=== PATIENT | male | born 1965 | race Caucasian/White ===

== ENCOUNTER 2016-10-10 07:38 | Day surgery (SDC) | payer OTHER ==
[~2016-10-10] VITALS: Ht 175.3 cm; Wt 99.8 kg
[~2016-10-10 07:38] MED LIST: ALLEGRA ALLERG180 MG PO; CEFUROXIME500 MG PO; CIPRO500 MG PO; FLOVENT DISKUS1 DIS2 IH; FLUTICASONE PRO16 GM BOTH NARES; IBUPROFEN600 MG PO; LEVAQUIN750 MG PO; LIPITOR10 MG PO; NORCO 5/3251 TABLET PO; OMEPRAZOLE20 M2 PO; PERCOCET 5/31 TABLET PO; PREDNISONE10 MG PO
[2016-10-10 08:36] VITALS: BP 120/78
[2016-10-10 12:55] VITALS: BP 117/78
[2016-10-10 13:40] VITALS: BP 125/92
[2016-10-10 14:38] VITALS: BP 127/87
[2016-10-10 14:48] VITALS: BP 145/88
== END 2016-10-10 14:52 | disposition home or self-care (01) ==
LOC: SDC 07:38
DX: J34.2 Deviated nasal septum (principal); J34.3 Hypertrophy of nasal turbinates; K21.9 Gastro-esophageal reflux disease without esophagitis; E78.5 Hyperlipidemia, unspecified; Z88.0 Allergy status to penicillin; Z83.49 Family history of other endocrine, nutritional and metabolic diseases; Z82.0 Family history of epilepsy and other diseases of the nervous system; Z82.49 Family history of ischemic heart disease and other diseases of the circulatory system
CPT/HCPCS: J0171; J1170; J2250; J3010

== ENCOUNTER 2017-03-12 16:59 | Observation (INO) | payer OTHER ==
[~2017-03-12] VITALS: Ht 175.3 cm; Wt 104.8 kg
[~2017-03-12 16:59] MED LIST changes: -OMEPRAZOLE20 M2 PO; +OMEPRAZOLE40 M1 PO
[2017-03-12 18:35] LABS: EOSINOPHIL (%) 0.6 % (0-5); EOSINOPHIL COUNT 0.1 K/uL (0-0.3); HEMATOCRIT 45.2 % (38.0-50.0); IMMATURE GRANULOCYTE (%) 0.4 % (0.0-0.7); IMMATURE GRANULOCYTE COUNT 0.1 K/uL; INSTRUMENT ABS NEUTROPHIL CT 10.6 K/uL; LYMPHOCYTE COUNT 1.6 K/uL (1.0-2.8); MCH 29.1 PG (29.0-34.0); MCHC 33.6 G/DL (30.0-36.0); MCV 86.4 FL (86-99); MEAN PLAT.VOLUME 10.5 uM^3 (9.0-12.4); MONOCYTE COUNT 1.2 K/uL (0-0.8); NEUTROPHIL (%) 78.1 % (45-76); NEUTROPHIL COUNT 10.6 K/uL (1.8-6.4); PLATELET COUNT 186 K/uL (156-360); RBC DIS.WIDTH-CV 13.2 % (11.8-14.6); RBC DIS.WIDTH-SD 41.7 % (39-53); RED BLOOD COUNT 5.23 M/uL (4.00-5.50); WHITE BLOOD COUNT 13.6 K/uL (4.1-10.2)
[2017-03-12 18:45] LABS: CHLORIDE 105 mEq/L (99-109); POTASSIUM 3.9 mEq/L (3.7-5.4); SODIUM 138 mEq/L (136-147)
[2017-03-12 18:46] LABS: GLUCOSE 86 mg/dL (70-99)
[2017-03-12 18:48] LABS: ANION GAP 11 MEQ/L (2-14)
[2017-03-12 18:50] LABS: GFR ESTIMATE (CALCULATED) > 59 mL/min/
[2017-03-12 18:51] LABS: UREA NITROGEN (BUN) 18 mg/dL (9-23)
[2017-03-12] MEDS ORDERED: FLEXERIL10 MG PO (21:17)
[2017-03-12] MEDS ORDERED: HYDROCODON-ACE1 EAC7 PO (21:17)
[2017-03-12] MEDS ORDERED: MELOXICAM7.5 MG PO (21:17)
[2017-03-12 21:47] LABS: ADD MIUA? NO; BILIRUBIN NEGATIVE; BLOOD NEGATIVE; COLOR STRAW ((YELLOW)); GLUCOSE (STRIP) NEGATIVE; KETONES 20; LEUKOCYTES NEGATIVE; NITRITE NEGATIVE; PROTEIN (STRIP) NEGATIVE; UROBILINOGEN 0.2 MG/DL (0.2-1.0)
[2017-03-12 21:57] LABS: SPECIFIC GRAVITY 1.055 (1.000-1.030)
[2017-03-13 00:20] VITALS: BP 114/73
[2017-03-13 06:08] LABS: HEMATOCRIT 40.6 % (38.0-50.0); MCH 30.5 PG (29.0-34.0); MCHC 34.7 G/DL (30.0-36.0); MCV 87.7 FL (86-99); MEAN PLAT.VOLUME 10.3 uM^3 (9.0-12.4); PLATELET COUNT 153 K/uL (156-360); RBC DIS.WIDTH-CV 13.4 % (11.8-14.6); RBC DIS.WIDTH-SD 43.3 % (39-53); RED BLOOD COUNT 4.63 M/uL (4.00-5.50); WHITE BLOOD COUNT 13.8 K/uL (4.1-10.2)
[2017-03-13 06:37] LABS: ALKALINE PHOSPHATASE 46 IU/L (3-129); ANION GAP 7 MEQ/L (2-14); CHLORIDE 104 MEQ/L (99-109); GFR ESTIMATE (CALCULATED) > 59 mL/min/; GLUCOSE 106 mg/dL (70-99); POTASSIUM 3.9 MEQ/L (3.7-5.4); SAMPLE HEMOLYSIS CHECK 0; SAMPLE ICTERIC CHECK 0; SAMPLE LIPEMIA CHECK 0; SODIUM 137 MEQ/L (136-147); TOTAL BILIRUBIN 1.9 MG/DL (0.0-1.0); UREA NITROGEN (BUN) 12 mg/dL (9-23)
[2017-03-13 08:05] VITALS: BP 117/67
[2017-03-13 12:03] VITALS: BP 120/74
[2017-03-13 16:49] VITALS: BP 120/67
[2017-03-14 00:45] VITALS: BP 131/77
[2017-03-14 03:30] VITALS: BP 134/80
[2017-03-14 05:43] LABS: EOSINOPHIL (%) 1.3 % (0-5); EOSINOPHIL COUNT 0.1 K/uL (0-0.3); HEMATOCRIT 41.4 % (38.0-50.0); IMMATURE GRANULOCYTE (%) 0.4 % (0.0-0.7); INSTRUMENT ABS NEUTROPHIL CT 7.5 K/uL; LYMPHOCYTE COUNT 1.3 K/uL (1.0-2.8); MCHC 32.9 G/DL (30.0-36.0); MCV 88.3 FL (86-99); MEAN PLAT.VOLUME 10.2 uM^3 (9.0-12.4); NEUTROPHIL (%) 75.3 % (45-76); NEUTROPHIL COUNT 7.5 K/uL (1.8-6.4); PLATELET COUNT 158 K/uL (156-360); RBC DIS.WIDTH-CV 13.2 % (11.8-14.6); RED BLOOD COUNT 4.69 M/uL (4.00-5.50); WHITE BLOOD COUNT 9.9 K/uL (4.1-10.2)
[2017-03-14 06:20] LABS: ALKALINE PHOSPHATASE 47 IU/L (3-129); ANION GAP 6 MEQ/L (2-14); CHLORIDE 105 MEQ/L (99-109); GFR ESTIMATE (CALCULATED) > 59 mL/min/; GLUCOSE 87 mg/dL (70-99); POTASSIUM 3.9 MEQ/L (3.7-5.4); SAMPLE HEMOLYSIS CHECK 0; SAMPLE ICTERIC CHECK 0; SAMPLE LIPEMIA CHECK 0; SODIUM 139 MEQ/L (136-147); UREA NITROGEN (BUN) 10 mg/dL (9-23)
[2017-03-14 06:21] LABS: TOTAL BILIRUBIN 1.4 MG/DL (0.0-1.0)
[2017-03-14 07:30] VITALS: BP 122/84
[2017-03-14 13:20] VITALS: BP 118/78
[2017-03-14] MEDS ORDERED: HYDROCODON-ACE1 EAC7 PO (13:52)
[2017-03-14] MEDS ORDERED: FLAGYL500 MG PO (13:53)
[2017-03-14] MEDS ORDERED: CIPRO500 MG PO (13:53)
== END 2017-03-14 15:32 | disposition home or self-care (01) ==
LOC: EME 16:59 → RME 16:59 → EDOF 22:19 → 5WEST 22:19 → EDOF 22:19 → ENRESERV 22:24 → EDOF 03-13 00:12 → 5WEST 03-13 00:16
PROVIDERS: Internal Medicine; Physician Assistant
DX: K57.32 Diverticulitis of large intestine without perforation or abscess without bleeding (principal); E78.5 Hyperlipidemia, unspecified; K21.9 Gastro-esophageal reflux disease without esophagitis; Z82.49 Family history of ischemic heart disease and other diseases of the circulatory system; Z82.0 Family history of epilepsy and other diseases of the nervous system; Z88.0 Allergy status to penicillin; D72.829 Elevated white blood cell count, unspecified
CPT/HCPCS: 74177; 80048; 80053; 81003; 85025; 85027; 99281; 99285; C9113; G0378; J1644; J1885; J1956; J2270; J3010; J7030; J7040; S0030